=== PATIENT | female | born 1990 | race Caucasian/White ===

== ENCOUNTER 2018-08-18 18:56 | Emergency (ER) | payer OTHER ==
--- NOTE | 2018-08-18 20:43 | ED ---
Lower Extremity - HPI Summary HPI Summary: 27-year-old female presents with left thigh pain for the past day. States she has a history of a blood clots that was dx when was 15 and has been on xarelto since. She states 3 months ago the insurance company stopped covering xarelto and she was not on anything for 3months. She states that she got the script yesterday and took one dose. She noticed the pain yesterday. she denies any fevers. no chest pain or SOB. no palpitations. she is a smoker. has a fam hx of bloods clots. is not on control. no recent travel. - History of Current Complaint Chief Complaint: EDExtremityLower Stated Complaint: HURTS BAD TO WALK ON MY LEFT LEG PER PT Time Seen by Provider: 08/18/18 20:26 Hx Last Menstrual Period: 12/27/12 Pain Intensity: 7 - Allergies/Home Medications Allergies/Adverse Reactions: Allergies Allergy/AdvReac Type Severity Reaction Status Date / Time amoxicillin Allergy Vomiting Verified 08/18/18 20:52 clavulanic acid Allergy Vomiting Verified 08/18/18 20:52 Penicillins Allergy Vomiting Verified 08/18/18 20:52 Home Medications: Home Medications Escitalopram * [Lexapro 10 mg (NF)] 10 mg PO DAILY 08/18/18 [History Confirmed 08/18/18] hydrOXYzine HCL TAB* [Atarax 25 MG TAB*] 25 mg PO TID PRN 08/18/18 [History Confirmed 08/18/18] PMH/Surg Hx/FS Hx/Imm Hx Endocrine/Hematology History: Reports: Hx Anticoagulant Therapy - warfarin 5mg PO for benjamín LE blood clots/PE Denies: Hx Diabetes, Hx Thyroid Disease Cardiovascular History: Denies: Hx Hypertension, Hx Pacemaker/ICD Respiratory History: Reports: Hx Asthma Denies: Hx Chronic Obstructive Pulmonary Disease (COPD) History: Denies: Hx Renal Disease Sensory History: Reports: Hx Contacts or Glasses - Glasses Opthamlomology History: Reports: Hx Contacts or Glasses - Glasses Neurological History: Denies: Hx Dementia, Hx Seizures Psychiatric History: Denies: Hx Eating Disorder, Hx of Violent Episodes Against Others, Hx Substance Abuse - Surgical History Surgery Procedure, Year, and Place: gall bladder removed, 2009 & 2 c-sections Infectious Disease History: No Infectious Disease History: Reports: 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 "couple years ago" Denies: Hx Clostridium Difficile, Hx Hepatitis, Hx Human Immunodeficiency Virus (HIV), Hx Shingles, Hx Tuberculosis, Traveled Outside the [place] in Last 30 Days - Social History Alcohol Use: Rare Substance Use Type: Reports: None Hx Tobacco Use: Yes Smoking Status (MU): Light Every Day Tobacco Smoker Review of Systems Negative: Fever Negative: Chest Pain Negative: Shortness Of Breath Positive: Myalgia - left leg pain All Other Systems Reviewed And Are Negative: Yes Physical Exam Triage Information Reviewed: Yes Vital Signs On Initial Exam: Initial Vitals Temp Pulse Resp BP Pulse Ox 97.6 F 60 16 136/75 99 08/18/18 19:05 08/18/18 19:05 08/18/18 19:05 08/18/18 19:05 08/18/18 19:05 Vital Signs Reviewed: Yes Appearance: Positive: Well-Appearing Skin: Positive: Warm, Dry Head/Face: Positive: Normal Head/Face Inspection Eyes: Positive: Normal, Conjunctiva Clear ENT: Positive: Pharynx normal Respiratory/Lung Sounds: Positive: Clear to Auscultation, Breath Sounds Present Cardiovascular: Positive: Normal, RRR Musculoskeletal: Positive: Strength/ROM Intact - left leg, Other - tenderness left thigh, good pulses, sensation grossly intact Neurological: Positive: Normal Psychiatric: Positive: Normal Diagnostics - Vital Signs Vital Signs Temp Pulse Resp BP Pulse Ox 08/18/18 19:05 97.6 F 60 16 136/75 99 - Laboratory Result Diagrams: 08/18/18 20:34 08/18/18 20:33 Lab Statement: Any lab studies that have been ordered have been reviewed, and results considered in the medical decision making process. - Ultrasound No standard instances Ultrasound Interpretation Completed By: Radiologist Summary of Ultrasound Findings: IMPRESSION: Positive for occlusive DVT in the left common femoral and femoral veins and. nonocclusive thrombus within the popliteal vein. Lower Extremity Course/Dx - Course Course Of Treatment: 27-year-old female presents with left thigh pain for the past day. States she has a history of a blood clots that was dx when was 15 and has been on xarelto since. She states 3 months ago the insurance company stopped covering xarelto and she was not on anything for 3months. She states that she got the script yesterday and took one dose. She noticed the pain yesterday. she denies any fevers. no chest pain or SOB. no palpitations. she is a smoker. has a fam hx of bloods clots. is not on control. no recent travel. on exam has tendernss left calf. neurovascular intact. u/s shows DVT. discussed options and patient wants to stay on xarelto as has not been on for a couple months has not failed xarelto. will restart with 15mg bidx21 days but told if insurance will not cover such to just use 20mg. told follow up with hematology as has never had work up why gets dvt. warned if develop sob or chest pain to return. patient understand and agrees with plan. - Diagnoses Differential Diagnosis/HQI/PQRI: Positive: DVT, Phlebitis, Strain Provider Diagnoses: DVT (deep venous thrombosis) Discharge - Sign-Out/Discharge Documenting (check all that apply): Patient Departure Patient Received Moderate/Deep Sedation with Procedure: No - Discharge Plan Condition: Stable Disposition: HOME Prescriptions: Rivaroxaban TAB(*) [Xarelto 15 mg(*)] 15 mg PO BID #40 tab Patient Education Materials: Deep Vein Thrombosis (ED) Referrals: Tripp ALEJANDRO,Sam Regan [Primary Care Provider] - Juan Carlos Gilliam MD [Medical Doctor] - Additional Instructions: follow up with hematology Take xarelto twice a day for 21 days then once a day Take with food Avoid Aspirin or ibuprofen, use Tylenol for pain Follow up with primary care physician for continued care Return to ED if develop any chest pain or shortness of breath any new or worsening symptoms - Billing Disposition and Condition Condition: STABLE Disposition: Home
[2018-08-18 20:45] LABS: ABS Basophils 0.1 10^3/ul (0-0.2); ABS Eosinophils 0.4 10^3/ul (0-0.6); ABS Monocytes 0.5 10^3/ul (0-0.8); ABS Neutrophils 7.2 10^3/ul (1.5-7.7); ABS Nucleated RBC 0 10^3/ul; Hematocrit 40 % (35-47); Hemoglobin 13.1 g/dl (12.0-16.0); Mean Corpuscular HGB Conc 33 g/dl (31-36); Mean Corpuscular Hemoglobin 27 pg (27-31); Mean Corpuscular Volume 81 fL (80-97); Mean Platelet Volume 8.5 fL (7.4-10.4); Nucleated Red Blood Cells % 0.1; Platelet Count 227 10^3/ul (150-450); Red Blood Count 4.92 10^6/ul (4.00-5.40); Red Cell Distribution Width 17 % (10.5-15); White Blood Count 11.2 10^3/ul (3.5-10.8)
[2018-08-18 20:53] LABS: Activated Partial Thrombo Time 33.8 seconds (26.0-36.3); INR 1.02 (0.77-1.02)
[2018-08-18 20:58] LABS: ALT 13 U/L (7-52); AST 12 U/L (13-39); Albumin 4.3 g/dL (3.2-5.2); Albumin/Globulin Ratio 1.2 (1-3); Alkaline Phosphatase 93 U/L (34-104); Anion Gap 7 mmol/L (2-11); BUN/Creatinine Ratio 9.4 (8-20); Blood Urea Nitrogen 9 mg/dL (6-24); CO2 Carbon Dioxide 28 mmol/L (22-32); Calcium 9.2 mg/dL (8.6-10.3); Chloride 103 mmol/L (101-111); EGFR African American 83.1 (>60); EGFR Non-African American 68.7 (>60); Globulin 3.5 g/dL (2-4); Glucose 97 mg/dL (70-100); Potassium 4.3 mmol/L (3.5-5.0); Sodium 138 mmol/L (135-145); Total Protein 7.8 g/dL (6.4-8.9)
[2018-08-18 21:05] LABS: HCG Pregnancy < 0.60 mIU/mL
[2018-08-18 21:54] VITALS: BP 150/88
[2018-08-18] MEDS ORDERED: Rivaroxaban TAB(*) 15 MG PO ONE ×2 (21:54)
== END 2018-08-18 22:25 | disposition home or self-care (01) ==
LOC: ED 18:56
DX: I82.412 Acute embolism and thrombosis of left femoral vein (principal); I82.432 Acute embolism and thrombosis of left popliteal vein; Z86.718 Personal history of other venous thrombosis and embolism; Z79.01 Long term (current) use of anticoagulants; Z88.1 Allergy status to other antibiotic agents; Z88.0 Allergy status to penicillin; Z83.2 Family history of diseases of the blood and blood-forming organs and certain disorders involving the immune mechanism; F17.200 Nicotine dependence, unspecified, uncomplicated
CPT/HCPCS: 36415; 80053; 84702; 85025; 85610; 85730; 99282